=== PATIENT | female | born 1995 | race Caucasian/White ===

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

== ENCOUNTER → 2017-01-21 | Outpatient (CLI) | payer BC ==
--- NOTE | 2017-01-21 13:00 | KCIC ---
Pelvic ultrasound Clinical Indication: . Follow-up bilateral ovarian cysts.. COMPARISON: December 12, 2016. TRANSABDOMINAL SCAN Uterus measures 4.4 cm wide by 7.4 cm longitudinal by 2.9 cm AP. Adnexa are suboptimally seen. TRANSVAGINAL SCAN Uterus: Retroverted. Endometrium: 6 mm thickness Right ovary: 3.7 cm long axis. Contains a complex septated lesion or cyst which measures 3.2 cm diameter. This does not demonstrate substantial vascularity. Positive blood flow to the right ovary. Left ovary: 4.0 cm long [place] with multiple small follicular cysts. Positive blood flow. Free fluid: Mild free fluid in the cul-de-sac. IMPRESSION: 1. Complex septated cystic lesion within the right ovary. The overall appearance and size is similar to the previous exam. 2. Previously identified left ovarian lesion is not seen today. Electronically signed by: Anurag Seth MD (01/21/2017 12:56 PM) [id number]
== END | disposition home or self-care (01) ==
LOC: KCIC US 09:14
PROVIDERS: ATTEND Obstetrics & Gynecology
DX: N83.201 Unspecified ovarian cyst, right side (principal); N83.202 Unspecified ovarian cyst, left side
CPT/HCPCS: 76830; 76856